=== PATIENT | female | born 1955 | race Caucasian/White ===

== ENCOUNTER → 2016-12-29 | Outpatient (CLI) | payer BC ==
[~2016-12-29] MED LIST: CLONAZEPAM1 M1 PO; ZOLOFT 50MG50 MG PO
[2016-12-29 10:04] VITALS: BP 133/85
== END ==
LOC: RAD 09:30
DX: R10.13 Epigastric pain (principal); I31.3 Pericardial effusion (noninflammatory); J90 Pleural effusion, not elsewhere classified; K80.80 Other cholelithiasis without obstruction
CPT/HCPCS: Q9967

== ENCOUNTER → 2017-01-08 | Outpatient (CLI) | payer BC | LOC: LAB 11:23 | DX: R30.0 Dysuria (principal) ==

== ENCOUNTER → 2017-02-01 | Outpatient (CLI) | payer BC | LOC: RAD 09:14 | DX: R05 Cough (principal) ==